=== PATIENT | female | born 1970 | race Caucasian/White ===

== ENCOUNTER 2017-05-23 12:51 | Observation (INO) | payer BC ==
[2017-05-23] MEDS ORDERED: ZOFRAN INJ 4 MG VIAL ONE (13:01)
--- NOTE | 2017-05-23 13:03 | DR.GENAD ---
HPI - PCP Primary Care Physician: gunjan - HPI Comment HPI Comment: PATIENT INJURED RIGHT UPPER BACK 7 DAYS AGO. INCREASING RIGHT MID THORACICPAIN SINCE. NOW ALSO HAVING SEVERE HEADACHE AND RIGHT FACIAL PARESTHESIA. RIGHT SHOULDER IS SORE. ON ROBAXIN AND MOTRIN. EVALUATED 3 TIMES SINCE INJURY. STILL GETTING WORSE. RIGHT ELBOW IS ALSO PAINFULL. - Complaint/Symptoms Chief Complaint Doctors Comments: RIGHT UPPER BACK SURGERY TIMES ONE WEEK. WORSE DAILY. Chief Complaint:: patient stated she started huting in her upper back on her right side last wednesday. she has been to [facility], dr gray and to a chiropractor. Self Treatment fo Chief Complaint: has taken robaxin and hydrocodiene - Nurses notes reviewed Nurses Notes Review: Yes - Source History Provided: Patient, Family Member - Mode of Arrival Mode of Arrival: Wheelchair - Timing Onset of Chief Complaint: 05/16/17 Came on: Suddenly - Duration Duration: Constant Duration: Days - Severity Severity: Moderate PMH - PMH Past Medical History: Yes Past Medical History: Hypothyroidism Past Surgical History: Yes Surgical History: Hysterectomy, Tonsillectomy - Family History History of Family Medical Conditions: No - Social History Does patient currently use any type of tobacco product: No Have you used tobacco products in the last 12 months: No Type of Tobacco Use: None Does any household member use tobacco: No Alcohol Use: Rarely Do you use any recreational Drugs:: No Lives With: Family Lives Where: Home - infectious screening In the last 2 months have you had wt loss of >10#?: NO Have you had fever, night sweats or hemotysis?: No Have you traveled outside the country in the last 6 months?: No Isolation: Standard ROS - Review of Systems Constitutional: No Symptoms Reported Eyes: No Symptoms Reported ENTM: No Symptoms Reported Respiratoy: No Symptoms Reported Cardiovascular: No Symptoms Reported Gastrointestinal/Abdominal: No Symptoms Reported Genitourinary: No Symptoms Reported Musculoskeletal: No Symptoms Reported Hematologic/Lymphatic: No Symptoms Reported Endocrine: No Symptoms Reported All Other Systems: Reviewed and Negative PE - Vital Signs Vitals: Pulse Rate 80 Respiratory Rate 18 Blood Pressure 162/76 O2 Sat by Pulse Oximetry 100 - General Limitations: No Limitations General Appearance: Alert - Head Head Exam: Normal Inspection - Eyes Eye exam: Normal Appearance - ENT ENT Exam: Normal External Ear Exam External Ear Exam: Normal External Inspection TM/Canal Exam: Bilateral Normal Nose Exam: Normal Nose Exam Mouth Exam: Normal Inspection Throat Exam: Normal Inspection - Neck Neck Exam: Trachea Midline - Chest Chest Inspection: Symmetric Chest Wall Rise - Respiratory Respiratory Exam: Normal Lung Sounds Bilat Respiratory Exam: Bilateral Clear to Auscultation - Cardiovascular Cardiovascular Exam: Regular Rate, Normal Rhythm, Normal Heart Sounds - Abdominal Exam Abdominal Exam: Normal Bowel Sounds, Soft - Extremities Extremities Exam: Normal Inspection - Neurologic Neurological Exam: Alert, Oriented X3 - Psychiatric Psychiatric Exam: Anxious - Skin Skin Exam: Normal Color MDM - Additional Information Additional Information Obtained From: Family - Differential Diagnosis Differential Diagnosis: MID BACK PAIN/STRAIN, FRACTURE. HEADACHE, GENERALIZE PAIN/MYALGIA Course - Treatment Treatment: SEE ORDERS. IV PAIN MEDS AND DECADRUM, PAIN IMPROVING. - Consultation Consultation Comments: DISCUSS PATIENT WITH DR. GRAY. HE WILL ADMIT PATIENT. - Education/Counseling Education/Counseling: Patient, Family, Education Educated On: Treatment, Diagnosis, Needs for Follow Up ROR - Labs Reviewed Laboratory Results Reviewed?: Yes Result Diagrams: 05/24/17 04:35 05/24/17 04:35 Laboratory: WBC 14.9 X10^3/uL (3.6-10.0) H 05/23/17 13:09 RBC 4.82 X10^6/uL (3.5-5.4) 05/23/17 13:09 Hgb 15.5 g/dL (12.0-16.0) 05/23/17 13:09 Hct 44.4 % (36.0-47.0) 05/23/17 13:09 MCV 92.1 fL (80.0-100.0) 05/23/17 13:09 MCH 32.1 pg (27.0-34.0) 05/23/17 13:09 MCHC 34.9 g/dL (33.0-35.0) 05/23/17 13:09 RDW 12.0 % (11.6-16.5) 05/23/17 13:09 Plt Count 319 X10^3/uL (150.0-450.0) 05/23/17 13:09 MPV 8.3 fL (7.4-11.0) 05/23/17 13:09 Neut % 66.7 % (42.0-75.0) 05/23/17 13:09 Lymph % 25.9 % (21.0-51.0) 05/23/17 13:09 [place] % 6.4 % (0.0-13.0) 05/23/17 13:09 Eos % 0.3 % (0.9-2.9) L 05/23/17 13:09 Baso % 0.7 % (0.2-1.0) 05/23/17 13:09 Neut # 9.9 x10^3/uL (2.2-4.8) H 05/23/17 13:09 Lymph # 3.9 X10^3/uL (1.3-2.9) H 05/23/17 13:09 [place] # 1.0 x10^3/uL (0.3-0.8) H 05/23/17 13:09 Eos # 0.0 x10^3/uL (0.0-0.2) 05/23/17 13:09 Baso # 0.1 X10^3/uL (0.0-0.1) 05/23/17 13:09 Absolute Nucleated RBC 0.0 /100WBC 05/23/17 13:09 Sodium 137 mmol/L (136-145) 05/23/17 13:09 Corrected Sodium 138 mmol/L (136-145) 05/23/17 13:09 Potassium 3.1 mmol/L (3.5-5.1) L 05/23/17 13:09 Chloride 99 mmol/L (98-107) 05/23/17 13:09 Carbon Dioxide 25.4 mmol/L (21-32) 05/23/17 13:09 BUN 18 mg/dL (7-18) 05/23/17 13:09 Creatinine 0.87 mg/dL (0.55-1.02) 05/23/17 13:09 Est GFR (MDRD) Af Amer > 60 (>60) 05/23/17 13:09 Est GFR (MDRD) Non-Af > 60 (>60) 05/23/17 13:09 Glucose 132 mg/dL (65-99) H 05/23/17 13:09 Calcium 9.4 mg/dL (8.5-10.1) 05/23/17 13:09 Corrected Calcium TNP 05/23/17 13:09 Total Bilirubin 1.20 mg/dL (0.2-1.0) H 05/23/17 13:09 AST 15 Units/L (15-37) 05/23/17 13:09 ALT 27 Units/L (12-78) 05/23/17 13:09 Alkaline Phosphatase 63 Units/L (46-116) 05/23/17 13:09 Total Protein 7.8 g/dL (6.4-8.2) 05/23/17 13:09 Albumin 3.9 g/dL (3.4-5.0) 05/23/17 13:09 Globulin 3.9 g/dL (2.5-4.5) 05/23/17 13:09 Albumin/Globulin Ratio 1.0 Ratio (1.1-2.1) L 05/23/17 13:09 Amylase 63 Units/L (25-115) 05/23/17 13:09 Lipase 92 Units/L (73-393) 05/23/17 13:09 - XRAY XRAY Interpreted by: Radiologist XRAY Findings: REPORT DISCUSS WITH PATIENT. - Diagnosis Discharge Problem: Intractable pain, Elbow pain, right, Hemangioma of vertebral body, Myalgia Shoulder pain, right Qualifiers: Chronicity: acute Qualified Code(s): M25.511 - Pain in right shoulder Headache Qualifiers: Headache type: unspecified Headache chronicity pattern: acute headache Intractability: intractable Qualified Code(s): R51 - Headache - Discharge Plan Disposition: ADMITTED INPATIENT Condition: Stable - Follow ups/Referrals - Instructions
[2017-05-23] MEDS ORDERED: ZOFRAN INJ 4 MG VIAL IVP ONE (13:05)
[2017-05-23] MEDS ORDERED: TORADOL 30 MG VIAL IVP ONE (13:05)
[2017-05-23] MEDS ORDERED: PEPCID 20 MG IV PREMIX* 20 MG/50 ML BAG IV ONE ×2 (13:05→13:23)
[2017-05-23] MEDS ORDERED: NS 1000 ML 1,000 ML IV ONE (13:06)
[2017-05-23] MEDS ORDERED: DECADRON INJ IV ONE (13:17)
[2017-05-23 13:23] LABS: BASOPHILS # (AUTO) 0.1 X10^3/uL (0.0-0.1); BASOPHILS % (AUTO) 0.7 % (0.2-1.0); EOSINOPHILS % (AUTO) 0.3 % (0.9-2.9); HEMATOCRIT 44.4 % (36.0-47.0); HEMOGLOBIN 15.5 g/dL (12.0-16.0); LYMPHOCYTES # (AUTO) 3.9 X10^3/uL (1.3-2.9); LYMPHOCYTES % (AUTO) 25.9 % (21.0-51.0); MEAN CORPUSCULAR HEMOGLOBIN 32.1 pg (27.0-34.0); MEAN CORPUSCULAR HGB CONC 34.9 g/dL (33.0-35.0); MEAN CORPUSCULAR VOLUME 92.1 fL (80.0-100.0); MEAN PLATELET VOLUME 8.3 fL (7.4-11.0); MONOCYTES % (AUTO) 6.4 % (0.0-13.0); NEUTROPHILS # (AUTO) 9.9 x10^3/uL (2.2-4.8); NEUTROPHILS % (AUTO) 66.7 % (42.0-75.0); PLATELET COUNT 319 X10^3/uL (150.0-450.0); RED BLOOD COUNT 4.82 X10^6/uL (3.5-5.4); WHITE BLOOD COUNT 14.9 X10^3/uL (3.6-10.0)
[2017-05-23] MEDS ORDERED: NS 1000 ML 1,000 ML ONE (13:23)
[2017-05-23] MEDS ORDERED: DECADRON INJ ONE (13:24)
[2017-05-23] MEDS ORDERED: TORADOL 30 MG VIAL ONE (13:24)
[2017-05-23 13:27] LABS: BLOOD UREA NITROGEN 18 mg/dL (7-18); CALCIUM 9.4 mg/dL (8.5-10.1); CARBON DIOXIDE 25.4 mmol/L (21-32); CHLORIDE 99 mmol/L (98-107); COR NA(FOR HYPERGLY) 138 mmol/L (136-145); CREATININE 0.87 mg/dL (0.55-1.02); GLUCOSE 132 mg/dL (65-99); SODIUM 137 mmol/L (136-145); eGFR BLACK RACES > 60 (>60); eGFR NON BLACK RACES > 60 (>60)
[2017-05-23 13:33] LABS: ALANINE AMINOTRANSFERASE 27 Units/L (12-78); ALBUMIN 3.9 g/dL (3.4-5.0); ALKALINE PHOSPHATASE 63 Units/L (46-116); AMYLASE 63 Units/L (25-115); ASPARTATE AMINO TRANSFERASE 15 Units/L (15-37); LIPASE 92 Units/L (73-393); TOTAL PROTEIN 7.8 g/dL (6.4-8.2)
--- NOTE | 2017-05-23 14:17 | RAD ---
HISTORY: Pain Study: Right shoulder series Comparison: None Findings: The appearance of the clavicle and AC joint are unremarkable. The glenohumeral articulation is norm al in its appearance. No acute cortical disruption or dislocation can be identified. The visualize d portions of the scapula are unremarkable. In addition, the visualized portions of the chest appea r unremarkable. IMPRESSION: 1. Negative exam. Reported By:
--- NOTE | 2017-05-23 14:21 | RAD ---
HISTORY: Pain Study: Right elbow series Comparison: None Findings: No fracture or dislocation is seen. There is no joint effusion. There is a small bony protuberance e xtending along the anterior medial aspect of the distal humerus, along the diametaphyseal region whi ch measures 5 mm and is well corticated. IMPRESSION: Incidental small 5 mm osteochondroma seen along the distal humerus with no acute bony abnormality se en. Reported By:
--- NOTE | 2017-05-23 14:26 | CT ---
HISTORY: Paresthesia in the right side of the face. Right-sided facial numbness Study: CT brain without contrast Comparison: No priors Technique: Multiple axial images of the brain were obtained from the skull base to the vertex without administr ation of IV contrast. Coronal and sagittal images are also reviewed. Dose reduction techniques utili zed automatic exposure control. Findings: No acute intraparenchymal hemorrhage or mass can be identified. No extra-axial fluid collections ar e seen. No alteration in the attenuation of the brain parenchyma can be identified to suggest acute or subacute ischemic change. The ventricular system is symmetric and nondilated. The extracranial structures are grossly unremarkable. there is a 1.3 centimeter calcified nodule present in the subc utaneous scalp in the left posterior parietal region. This appears to be extracranial . IMPRESSION: 1. No acute intracranial process can be identified. 2. Calcified subcutaneous nodule in the scalp region of left posterior parietal area. Reported By:
[2017-05-23] MEDS ORDERED: MORPHINE SULFATE INJ 4 MG IVP ONE (14:43)
--- NOTE | 2017-05-23 14:44 | CT ---
HISTORY: Pain in upper back after lifting heavy object Study: CT thoracic spine without contrast Comparison: No priors Technique: Multiple axial images of the thoracic spine were obtained from the thoracic inlet to the thoracolumbar junction. Sagittal and coronal reconstructions were performed and reviewed. Dose redu ction techniques utilized automatic exposure control. Findings: Alignment of the thoracic spine is maintained. No evidence for acute cortical disruption or subluxa tion identified. The posterior elements and central canal appear unremarkable. No significant para spinal soft tissue injury can be identified. There are indications of vertebral body hemangioma at t he T7 level. Mild spondylosis is present at multiple thoracic levels. IMPRESSION: No fracture, subluxation or disk space narrowing. There are indications of vertebral body hemangioma at the T7 level. Reported By:
[2017-05-23] MEDS ORDERED: MORPHINE SULFATE INJ 4 MG ONE (14:45)
[2017-05-23] MEDS: PHENERGAN INJ 25 MG IV PRN ×3 (14:54→23:07)
[2017-05-23] MEDS ORDERED: PHENERGAN INJ 25 MG IV PRN (15:58)
[2017-05-23 17:40] VITALS: BMI 31.2
[2017-05-23] MEDS ORDERED: K-RIDER 10 MEQ/NS 100 ML 10 MEQ/100 ML BAG IV PRN (17:44)
[2017-05-23] MEDS ORDERED: K-LYTE EFFERVESCENT PO PRN (17:44)
[2017-05-23] MEDS ORDERED: K-DUR TAB 20 MEQ PO PRN (17:44)
[2017-05-23] MEDS ORDERED: POTASSIUM CHLORIDE LIQ 20 MEQ UDC PO PRN (17:44)
[2017-05-23] MEDS: MORPHINE SULFATE INJ 4 MG IVP PRN ×2 (18:22→23:08)
[2017-05-23 19:41] LABS: BILIRUBIN,URINE NEGATIVE (NEGATIVE); BLOOD/HEMOGLOBIN,URINE NEGATIVE (NEGATIVE); GLUCOSE, URINE NEGATIVE (NEGATIVE); KETONES,URINE NEGATIVE (NEGATIVE); LEUKOCYTE ESTERASE ,URINE NEGATIVE (NEGATIVE); NITRITES,URINE NEGATIVE (NEGATIVE); PROTEIN,URINE NEGATIVE (NEGATIVE); UROBILINOGEN,URINE NORMAL (NORMAL)
[2017-05-23 19:51] LABS: APPEARANCE,URINE CLEAR (CLEAR); BACTERIA,URINE TRACE /HPF (NEGATIVE); COLOR,URINE YELLOW (YELLOW); RBC,URINE NONE SEEN /HPF (NEGATIVE); SQUAMOUS EPITHELIAL CELL,UR RARE /HPF (NEGATIVE)
[2017-05-23] MEDS: SOLU-Medrol 125 MG VIAL IVP SCH (21:36)
[2017-05-23] MEDS: NS + KCL 20 MEQ/L 1,000 ML IV SCH (21:37)
[2017-05-23] MEDS: PEPCID 20 MG IV PREMIX* 20 MG/50 ML BAG IV SCH (21:37)
[2017-05-23] MEDS ORDERED: SOLU-Medrol 125 MG VIAL IVP SCH (22:00)
[2017-05-24] MEDS: NS + KCL 20 MEQ/L 1,000 ML IV SCH ×4 (00:35→16:16)
[2017-05-24] MEDS: PHENERGAN INJ 25 MG IV PRN ×2 (04:50→09:09)
[2017-05-24] MEDS: MORPHINE SULFATE INJ 4 MG IVP PRN ×2 (04:50→09:10)
[2017-05-24] MEDS: SOLU-Medrol 125 MG VIAL IVP SCH ×2 (04:59→13:40)
[2017-05-24 05:22] LABS: BASOPHILS % (AUTO) 0.2 % (0.2-1.0); HEMATOCRIT 41.4 % (36.0-47.0); HEMOGLOBIN 14.1 g/dL (12.0-16.0); LYMPHOCYTES # (AUTO) 0.8 X10^3/uL (1.3-2.9); LYMPHOCYTES % (AUTO) 7.4 % (21.0-51.0); MEAN CORPUSCULAR HEMOGLOBIN 32.3 pg (27.0-34.0); MEAN CORPUSCULAR HGB CONC 34.1 g/dL (33.0-35.0); MEAN CORPUSCULAR VOLUME 94.7 fL (80.0-100.0); MEAN PLATELET VOLUME 8.3 fL (7.4-11.0); MONOCYTES # (AUTO) 0.1 x10^3/uL (0.3-0.8); MONOCYTES % (AUTO) 0.8 % (0.0-13.0); NEUTROPHILS # (AUTO) 9.5 x10^3/uL (2.2-4.8); NEUTROPHILS % (AUTO) 91.6 % (42.0-75.0); PLATELET COUNT 252 X10^3/uL (150.0-450.0); RED BLOOD COUNT 4.37 X10^6/uL (3.5-5.4); RED CELL DISTRIBUTION WIDTH 12.1 % (11.6-16.5); WHITE BLOOD COUNT 10.3 X10^3/uL (3.6-10.0)
[2017-05-24 05:31] LABS: ALANINE AMINOTRANSFERASE 21 Units/L (12-78); ALBUMIN 3.1 g/dL (3.4-5.0); ALKALINE PHOSPHATASE 51 Units/L (46-116); ASPARTATE AMINO TRANSFERASE 10 Units/L (15-37); BLOOD UREA NITROGEN 14 mg/dL (7-18); CALCIUM 8.5 mg/dL (8.5-10.1); CARBON DIOXIDE 26.1 mmol/L (21-32); CHLORIDE 107 mmol/L (98-107); COR CA(FOR HYPOALB) 9.2 mg/dL (8.5-10.1); COR NA(FOR HYPERGLY) 142 mmol/L (136-145); CREATININE 0.79 mg/dL (0.55-1.02); GLUCOSE 131 mg/dL (65-99); SODIUM 141 mmol/L (136-145); TOTAL PROTEIN 6.5 g/dL (6.4-8.2); eGFR BLACK RACES > 60 (>60); eGFR NON BLACK RACES > 60 (>60)
[2017-05-24 05:58] LABS: PLATELET MORPHOLOGY COMMENT NORMAL (NORMAL)
[2017-05-24] MEDS: PEPCID 20 MG IV PREMIX* 20 MG/50 ML BAG IV SCH (09:04)
[2017-05-24] MEDS ORDERED: NORCO 5/325 MG TAB PO PRN (10:51)
[2017-05-24] MEDS ORDERED: SYNTHROID 50 mcg TAB PO SCH (11:00)
[2017-05-24] MEDS ORDERED: ESTRADIOL 0.5 MG PO SCH (11:00)
[2017-05-24] MEDS ORDERED: TORADOL 30 MG VIAL IVP SCH (12:00)
--- NOTE | 2017-05-24 13:40 | MRI ---
HISTORY: Neck pain. Study: MRI cervical spine with and without contrast. Comparison: None available. Technique: Multiplanar multisequence MRI of the cervical spine was obtained utilizing standard depar tmental protocol. Findings: The visualized posterior fossa appears normal. No cerebellar tonsillar ectopia. Anatomic alignment w ithout acute fracture or listhesis. Multilevel disc desiccation with moderate to severe disc height loss at C5-C6. Associated type 2 Modic endplate changes. There is a T1 dark/T2 bright 5 mm focus wit hin the C3 vertebral body. This is bright on STIR images. This likely represents an atypical benign hemangioma. Remaining bone marrow signal appears normal. The visualized spinal cord demonstrates nor mal course, caliber, and signal characteristics. The visualized soft tissues are unremarkable. No ar eas of abnormal contrast enhancement. C2 -- C3: No significant disc bulge, neural foraminal narrowing, or spinal canal stenosis. C3 -- C4: No significant disc bulge, neural foraminal narrowing, or spinal canal stenosis. C4 -- C5: Broad-based disc bulge with associated uncovertebral hypertrophy causing severe left neura l foraminal narrowing and spinal canal stenosis to 10 mm. No significant right neural foraminal narr owing. C5 -- C6: Broad-based disc bulge with associated uncovertebral hypertrophy causing moderate to sever e left and moderate right neural foraminal narrowing. Spinal canal stenosis to 10 mm. C6 -- C7: Broad-based disc bulge and associated uncovertebral hypertrophy causing spinal canal steno sis to 7 mm. No significant neural foraminal narrowing. C7 -- T1: No significant disc bulge, neural foraminal narrowing, or spinal canal stenosis. IMPRESSION: Multilevel degenerative changes of the cervical spine, which are worse at C4 through C7 with broad-based disc bulges causing moderate to severe neural foraminal narrowing and spinal canal stenosis to 7 mm. Reported By:
--- NOTE | 2017-05-24 13:42 | US ---
History: Right upper quadrant abdominal pain Study: Ultrasound of the right upper quadrant of the abdomen Findings: The gallbladder is contracted without stone or sludge. The common hepatic duct measures 3. 9 millimeters diameter. The visualized liver and right kidney and pancreas are unremarkable without demonstration of a mass. There is no free fluid. There is no right hydronephrosis. Impression: Negative Reported By:
--- NOTE | 2017-05-24 13:50 | DR.H&P ---
H&P - History & Physical for Day of: H&P Date: 05/23/17 - Chief Complaint Chief Complaint: RIGHT SIDE BACK, NECK, AND SHOULDER PAIN. HEADACHE - Allergies Allergies/Adverse Reactions: Allergies Allergy/AdvReac Type Severity Reaction Status Date / Time No Known Drug Allergies Allergy Verified 05/23/17 17:19 - History of Present Illness History of Present Illness: IS A 47 YEAR OLD PATIENT OF OURS WHO PRESENTED TO THE EMERGENCY ROOM WITH COMPLAINTS OF RIGHT UPPER BACK PAIN, SEVERE HEADACHE, AND RIGHT SHOULDER AND ELBOW PAIN. PATIENT STATED THAT SHE INJURED HER BACK 7 DAYS AGO. PATIENT WAS SEEN IN OUR OFFICE LAST WEEK. WE PLACED HER ON ROBAXIN, MOTRIN, AND HYDROCODONE. SHE HAS SINCE BEEN TO A CHIROPRACTOR. PATIENT STATED THAT NO TREATMENTS HAVE HELPED HER PAIN SO FAR. ON ARRIVAL TO ER, VITALS WERE 80, 18, 100%, 162/76. LABS AND XRAYS/CTS WERE OBTAINED. CBC WNL EXCEPT WBC 14.9. CMP WNL EXCEPT POTASSIUM 3.1, GLUCOSE 132, AND TOTAL BILIRUBIN 1.20. URINALYSIS WNL. ELBOW XRAY REPORTED INCIDENTAL SMALL 5MM OSTEOCHONDROMA ALONG DISTAL HUMERUS WITH NO ACUTE ABNORMALITY SEEN. T-SPINE CT REPORTED INDICATIONS OF VERTEBRAL BODY HEMANGIOMA AT T-7. BRAIN CT REPORTED CALCIFIED SUBCUTANEOUS NODULE IN THE SCALP REGION OF THE LEFT POSTERIOR PARIETAL AREA. SHOULDER XRAY WAS NEGATIVE. IVF, MORPHINE, AND DECADRON WERE GIVEN WITH IMPROVEMENT OF PAIN NOTED. WE ADMITTED PATIENT FOR FURTHER TREATMENT AND EVALUATION. WE STARTED PATIENT ON NS WITH 20MEQ KCL AT 125ML/HR TO CORRECT POTASSIUM. WE WILL START CONTINUE WITH IV PAIN MEDICATION AND REVIEW HOME MEDICATIONS. WE WILL RECHECK LABS AND FOLLOW UP WITH PATIENT IN AM. - Past Medical History Past Medical History: Hypothyroidism - Past Surgical History Surgical History: Hysterectomy, Tonsillectomy - Family History Family Medical History: Diabetes Mellitus, Cancer, Hypertension - Social History Does patient currently use any type of tobacco product: No Have you used tobacco products in the last 12 months: No Type of Tobacco Use: None Does any household member use tobacco: No Alcohol Use: Rarely Drug Use: None - Medications Home Medications: Dextroamphetamine/Amphetamine [Dextroamp-Amphetamin 10 mg Tab] 10 mg PO DAILY [History Confirmed 05/23/17] Estradiol [Estradiol] 0.5 mg PO DAILY 05/23/17 [History Confirmed 05/23/17] Hydrocodone/Acetaminophen [Hydrocodon-Acetaminophen 5-325] 1 tab PO Q6HR [History Confirmed 05/23/17] Levothyroxine Sodium [SYNTHROID 50 mcg *] 50 mcg PO DAILY 05/23/17 [History Confirmed 05/23/17] - Review of Systems Constitutional: No Symptoms Reported. denies: See HPI, Fever, Chills, Sweats, Weakness, Malaise, Other Eyes: No Symptoms Reported. denies: See HPI, Pain, Vision Change, Conjunctivae Inflammation, Eyelid Inflammation, Redness, Other ENT: No Symptoms Reported. denies: See HPI, Ear Pain, Ear Discharge, Nose Pain , Nose Discharge, Nose Congestion, Mouth Pain, Mouth Swelling, Throat Pain, Throat Swelling, Other Respiratory: No Symptoms Reported. denies: See HPI, Cough, Dry, Shortness of Breath, Hemoptysis, SOB with Excertion, Pleuritic Pain, Sputum, Wheezing, Other Cardiovascular: No Symptoms Reported. denies: Chest Pain, See HPI, Palpitations , Orthopnea, Paroxysmal Noc. Dyspnea, Edema, Light Headedness, Other Gastrointestinal: Abdominal Pain. denies: No Symptoms Reported, See HPI, Nausea , Vomiting, Diarrhea, Constipation, Melena, Hematochezia, Other Genitourinary: No Symptoms Reported. denies: See HPI, Dysuria, Frequency, Incontinence, Hematuria, Retention, Other Musculoskeletal: Shoulder Pain, Back Pain, Neck Pain Skin: No Symptoms Reported. denies: See HPI, Rash, Lesions, Jaundice, Bruising , Wound, Ecchymosis, Other Neurological: See HPI (HEADACHE ), Other (HEADACHE ) - Physical Exam Vital Signs: Temperature 98.4 F Pulse Rate [Right Brachial] 85 Respiratory Rate 20 Blood Pressure [Right Arm] 139/64 O2 Sat by Pulse Oximetry 96 Oriented: Normal. negative: Time, Person, Place, Not Oriented, Unable to test, Other Eyes: Normal. negative: Blurred Vision, Diplopia, Discharge, Pain, Redness, Photophobia, Other Ear: Normal. negative: Right, Left, Swelling, Ecchymosis, Hemotypanum, Abrasion , Laceration Nose: Normal. negative: Injected, Discharge, Blood, Other Throat: Normal. negative: Tonsillar Hypertrophy, Red, Exudate, Dry, Other Respiratory: Clear Throughout. negative: Diminished Throughout, Rhonchi Throughout, Rales Throughout, Wheezes Throughout, RUL Clear, RML Clear, RLL Clear, ARANZA Clear, LML Clear, LLL Clear, RUL Diminished, RML Diminished, RLL Diminished, ARANZA Diminished, LML Diminished, LLL Diminished, RUL Absent, RML Absent, RLL Absent, ARANZA Absent, LML Absent, LLL Absent, RUL Rhonchi, RML Rhonchi , RLL Rhonchi, ARANZA Rhonchi, LML Rhonchi, LLL Rhonchi, RUL Insp. Wheeze, RML Insp. Wheeze, RLL Insp. Wheeze, ARANZA Insp.Wheeze, LML Insp.Wheeze, LLL Insp.Wheeze, RUL Exp. Wheeze, RML Exp. Wheeze, RLL Exp. Wheeze, ARANZA Exp. Wheeze , LML Exp. Wheeze, LLL Exp. Wheeze, RUL Rales, RML Rales, RLL Rales, ARANZA Rales, LML Rales, LLL Rales, RUL Rub, RML Rub, RLL Rub, ARANZA Rub, LML Rub, LLL Rub, RUL Squeak, RML Squeak, RLL Squeak, ARANZA Squeak, LML Squeak, LLL Squeak Cardiovascular: Normal. negative: Tachycardia, Bradycardia, Irregular, S3, S4, Systolic, Diastolic, Murmur, Edema, Other : Normal. negative: Dysuria, Hematuria, Frequency, Discharge, Testicular Pain , Bleeding, , Other Auscultation: Bowel Sounds: Normal. negative: Bruit, Absent, Increased, Decreased, High Pitched, Other Palpation: Normal. negative: Spleen Enlarged, Liver Enlarged, Mass Pulsatile, Other Tenderness: Normal, RUQ Skin: Normal Musculoskeletal: Right, Shoulder, Elbow, Back:Thoracic, Tender Psychiatric: Normal Mood Description: Calm Affect: Normal Speech Pattern: Clear - Assessment/Plan (1) Intractable pain Status: Acute Plan: MORPHINE IV PRN, MRI, CONTINUE TO MONITOR (2) Elbow pain, right Status: Acute Plan: MORPHINE IV PRN, CONTINUE TO MONITOR (3) Headache Qualifiers: Headache type: unspecified Headache chronicity pattern: acute headache Intractability: intractable Qualified Code(s): R51 - Headache Status: Acute Plan: MORPHINE, CONTINUE TO MONITOR (4) Shoulder pain, right Qualifiers: Chronicity: acute Qualified Code(s): M25.511 - Pain in right shoulder Status: Acute Plan: MORPHINE, CONTINUE TO MONITOR (5) Abdominal pain Qualifiers: Abdominal location: right upper quadrant Qualified Code(s): R10.11 - Right upper quadrant pain Status: Acute Plan: GALL BLADDER US, HIDA SCAN, CONTINUE TO MONITOR
[2017-05-24 16:15] VITALS: BP 141/65
[2017-05-25] MEDS ORDERED: ESTRACE PO SCH (09:00)
--- NOTE | 2017-05-28 22:11 | DR.CARTERD ---
- Discharge Summary for: Discharge Summary for Date of:: 05/24/17 - Admission Date Date of Admission: 05/23/17 - Admission Diagnoses Admission Diagnosis: (1) Intractable pain (2) Elbow pain, right (3) Headache (4) Shoulder pain, right (5) Abdominal pain - Discharge Date Discharge Date: 05/24/17 - Discharge Diagnoses Discharge Diagnosis: (1) Intractable pain (2) Elbow pain, right (3) Headache (4) Shoulder pain, right (5) Abdominal pain - Hospital Course Hospital Course: , A 47 YEAR OLD PATIENT OF OURS, PRESENTED TO THE EMERGENCY ROOM WITH COMPLAINTS OF RIGHT UPPER BACK PAIN, SEVERE HEADACHE, AND RIGHT SHOULDER AND ELBOW PAIN. PATIENT STATED THAT SHE INJURED HER BACK 7 DAYS AGO. PATIENT WAS SEEN IN OUR OFFICE LAST WEEK. WE PLACED HER ON ROBAXIN, MOTRIN, AND HYDROCODONE. SHE HAD SINCE BEEN TO A CHIROPRACTOR. PATIENT STATED THAT NO TREATMENTS HAD HELPED HER PAIN. ON ARRIVAL TO ER, VITALS WERE 80, 18, 100%, 162/ 76. LABS AND XRAYS/CTS WERE OBTAINED. CBC WNL EXCEPT WBC 14.9. CMP WNL EXCEPT POTASSIUM 3.1, GLUCOSE 132, AND TOTAL BILIRUBIN 1.20. URINALYSIS WNL. ELBOW XRAY REPORTED INCIDENTAL SMALL 5MM OSTEOCHONDROMA ALONG DISTAL HUMERUS WITH NO ACUTE ABNORMALITY SEEN. T-SPINE CT REPORTED INDICATIONS OF VERTEBRAL BODY HEMANGIOMA AT T-7. BRAIN CT REPORTED CALCIFIED SUBCUTANEOUS NODULE IN THE SCALP REGION OF THE LEFT POSTERIOR PARIETAL AREA. SHOULDER XRAY WAS NEGATIVE. IVF, MORPHINE, AND DECADRON WERE GIVEN WITH IMPROVEMENT OF PAIN NOTED. WE ADMITTED PATIENT FOR FURTHER TREATMENT AND EVALUATION. WE STARTED PATIENT ON NS WITH 20MEQ KCL AT 125ML/HR TO CORRECT POTASSIUM. WE STARTED IV PAIN MEDICATION AND REVIEWED HOME MEDICATIONS. THE NEXT DAY, PATIENT REPORTED LESS SHOULDER AND UPPER BACK PAIN. PATIENT DENIED HEADACHE. PATIENT HAD FAIR RANG OF MOTION WITH RIGHT SHOULDER. WE PLANNED FOR DISCHARGE. INSTRUCTIONS FOR MEDICATIONS AND FOLLOW UP WERE GIVEN TO PATIENT AND FAMILY, BOTH VOICED UNDERSTANDING. PATIENT WAS DISCHARGED HOME IN STABLE CONDITION WITH FAMILY. - Discharge Medications Discharge Medications: RX: Dextroamphetamine/Amphetamine [Dextroamp-Amphetamin 10 mg Tab] 10 mg PO DAILY 05/23/17 [History] RX: Estradiol 0.5 mg PO DAILY 05/23/17 [History] RX: Hydrocodone/Acetaminophen [Hydrocodon-Acetaminophen 5-325] 1 tab PO Q6HR 08/01 [History] RX: Levothyroxine Sodium [SYNTHROID 50 mcg *] 50 mcg PO DAILY 05/23/17 [History] Promethazine HCl [PHENERGAN TAB 25 MG *] 25 mg PO Q6H PRN #20 tab 05/24/17 [Rx] - Discharge Disposition Discharge Disposition: PATIENT IS TO FOLLOW UP IN OUR OFFICE ON 05/31/17.
== END 2017-05-24 17:00 | disposition home or self-care (01) ==
LOC: ER 13:03 → MED/SURG 15:53
PROVIDERS: ADMIT Internal Medicine; ATTEND Internal Medicine
DX: M54.5 Low back pain (principal); R51 Headache; R20.8 Other disturbances of skin sensation; D18.09 Hemangioma of other sites; M25.511 Pain in right shoulder; M79.1 Myalgia; M54.2 Cervicalgia; R10.11 Right upper quadrant pain; M25.521 Pain in right elbow; R73.09 Other abnormal glucose; D72.828 Other elevated white blood cell count
CPT/HCPCS: 36415; 70450; 72128; 72156; 73030; 73070; 76705; 80053; 81001; 82150; 83690; 85025; 96365; 96374; 96375; 99284; A4222; S0028; G0378; J1100; J1885; J2270; J2405; J2550; J2930

== ENCOUNTER → 2017-06-10 | Outpatient (CLI) | payer BC ==
[2017-05-24 16:15] VITALS: BP 141/65
--- NOTE | 2017-06-10 11:22 | NM ---
HISTORY: Abdominal pain Study: Nuclear medicine HIDA scan with ejection fraction Comparison: None Technique: Multiple scintigraphic images of the abdomen were obtained the intravenous administration of 5.2 mCi of technetium labeled Choletec. Following distention of the gallbladder with radiotracer the patient received a fatty meal. An estim ated gallbladder ejection fraction was calculated based on the physiologic response of this infusion . Findings: Homogeneous uptake of radiotracer is seen throughout the liver. This intrabiliary ductal system is observed normally. The common hepatic and common bile duct grossly appear unremarkable with normal biliary-bowel transit. The gallbladder is observed to fill normally. After the fatty meal a gallbladder ejection fraction of 3.4% (normal > 35%) is observed. IMPRESSION: 1. Normal hepatobiliary imaging scan. 2 abnormal gallbladder ejection fraction 3.4% Reported By:
== END | disposition home or self-care (01) | DRG 392 ==
LOC: RAD 08:41
PROVIDERS: ATTEND Internal Medicine
DX: R10.84 Generalized abdominal pain (principal); R93.2 Abnormal findings on diagnostic imaging of liver and biliary tract
CPT/HCPCS: 78227

== ENCOUNTER 2017-06-18 07:35 | Day surgery (SDC) | payer BC ==
[2017-06-18] MEDS ORDERED: NS 50 ML IV + SPIKE MINIBAG* 100 ML IV ONE (07:41)
[2017-06-18] MEDS ORDERED: NS 1000 ML 1,000 ML ONE (07:41)
[2017-06-18] MEDS ORDERED: ANCEF VIAL 1 GM ONE (07:42)
[2017-06-18] MEDS ORDERED: FENTANYL INJ 250 mcg ONE (07:50)
[2017-06-18 08:01] LABS: BASOPHILS % (AUTO) 0.5 % (0.2-1.0); EOSINOPHILS # (AUTO) 0.1 x10^3/uL (0.0-0.2); EOSINOPHILS % (AUTO) 1.4 % (0.9-2.9); HEMATOCRIT 40.5 % (36.0-47.0); HEMOGLOBIN 14.1 g/dL (12.0-16.0); LYMPHOCYTES # (AUTO) 2.8 X10^3/uL (1.3-2.9); LYMPHOCYTES % (AUTO) 46.7 % (21.0-51.0); MEAN CORPUSCULAR HEMOGLOBIN 32.3 pg (27.0-34.0); MEAN CORPUSCULAR HGB CONC 34.7 g/dL (33.0-35.0); MEAN CORPUSCULAR VOLUME 93.1 fL (80.0-100.0); MEAN PLATELET VOLUME 7.9 fL (7.4-11.0); MONOCYTES # (AUTO) 0.5 x10^3/uL (0.3-0.8); MONOCYTES % (AUTO) 7.8 % (0.0-13.0); NEUTROPHILS # (AUTO) 2.7 x10^3/uL (2.2-4.8); NEUTROPHILS % (AUTO) 43.6 % (42.0-75.0); PLATELET COUNT 292 X10^3/uL (150.0-450.0); RED BLOOD COUNT 4.35 X10^6/uL (3.5-5.4); RED CELL DISTRIBUTION WIDTH 12.1 % (11.6-16.5); WHITE BLOOD COUNT 6.1 X10^3/uL (3.6-10.0)
[2017-06-18 08:11] LABS: ALANINE AMINOTRANSFERASE 29 Units/L (12-78); ALBUMIN 3.7 g/dL (3.4-5.0); ALKALINE PHOSPHATASE 55 Units/L (46-116); ASPARTATE AMINO TRANSFERASE 20 Units/L (15-37); BLOOD UREA NITROGEN 14 mg/dL (7-18); CALCIUM 8.9 mg/dL (8.5-10.1); CARBON DIOXIDE 33.5 mmol/L (21-32); CHLORIDE 104 mmol/L (98-107); CREATININE 0.84 mg/dL (0.55-1.02); GLUCOSE 102 mg/dL (65-99); SODIUM 141 mmol/L (136-145); TOTAL PROTEIN 7.4 g/dL (6.4-8.2); eGFR BLACK RACES > 60 (>60); eGFR NON BLACK RACES > 60 (>60)
[2017-06-18] MEDS ORDERED: MARCAINE 0.25% WITH EPI IJ ONE (08:19)
[2017-06-18] MEDS ORDERED: XYLOCAINE 1 % (PLAIN) ONE (08:19)
[2017-06-18] MEDS ORDERED: NS IRRIGATION 3000 ML 3,000 ML IR ONE (08:40)
[2017-06-18] MEDS ORDERED: PHENERGAN INJ 25 MG IVP PRN (09:47)
[2017-06-18] MEDS ORDERED: ZOFRAN INJ 4 MG VIAL IVP PRN ×2 (09:47→09:51)
[2017-06-18] MEDS ORDERED: DILAUDID INJ ONE (09:47)
[2017-06-18] MEDS ORDERED: REGLAN INJ 10 MG VIAL IVP PRN (09:47)
[2017-06-18] MEDS ORDERED: BENADRYL INJ 50 MG VIAL IVP PRN (09:47)
[2017-06-18] MEDS: DILAUDID INJ IVP PRN ×3 (09:50→10:10)
[2017-06-18] MEDS ORDERED: PERCOCET TAB 5/325 MG PO PRN (09:51)
[2017-06-18 11:21] VITALS: BP 151/72
[2017-06-18] MEDS ORDERED: NORCURON INJ 10 MG VIAL ONE (14:01)
[2017-06-18] MEDS ORDERED: DYLOJECT INJ ONE (14:01)
[2017-06-18] MEDS ORDERED: ROBINUL ONE (14:01)
[2017-06-18] MEDS ORDERED: XYLOCAINE 2 % (PLAIN) ONE (14:01)
[2017-06-18] MEDS ORDERED: DIPRIVAN VIAL ONE (14:01)
[2017-06-18] MEDS ORDERED: ZOFRAN INJ 4 MG VIAL ONE (14:01)
[2017-06-18] MEDS ORDERED: NEOSTIGMINE INJ ONE (14:01)
[2017-06-18] MEDS ORDERED: QUELICIN (OR ANECTINE) ONE (14:01)
[2017-06-18] MEDS ORDERED: VERSED ONE (14:01)
[2017-06-18] MEDS ORDERED: SUPRANE IN ONE (15:32)
== END 2017-06-18 11:17 | disposition home or self-care (01) ==
LOC: SURG1 07:35
PROVIDERS: ATTEND Student in an Organized Health Care Education/Training Program
PROC: 0FT44ZZ Resection of Gallbladder, Percutaneous Endoscopic Approach (ICD-10-PCS; principal; 2017-06-18 08:30)
DX: K81.1 Chronic cholecystitis (principal); K82.8 Other specified diseases of gallbladder
CPT/HCPCS: 36415; 80053; 85025; A4216; A4222; S0020; A4217; J0330; J0690; J1170; J2001; J2250; J2405; J2550; J2710; J3010; J3490

== ENCOUNTER → 2017-08-19 | Outpatient (CLI) | payer BC ==
--- NOTE | 2017-08-24 17:20 | CT ---
HISTORY: Radiculopathy and back pain Study: CT lumbar spine without contrast Comparison: None Technique: Multiple axial images of the lumbar spine were obtained from the thoracolumbar junction t o the sacrum without the administration of IV contrast. Sagittal and coronal reformats were performe d and reviewed. Findings: Alignment of the lumbar spine is maintained. No evidence for acute fracture or subluxation can be id entified. No central canal compromise by bony osteophyte formation or soft tissue components can be identified. No significant facet joint arthropathy can be appreciated. The surrounding paraspinous soft tissues are normal in their noncontrasted appearance. IMPRESSION: 1. Negative exam of the lumbar spine. Reported By:
--- NOTE | 2017-08-25 09:34 | RAD ---
HISTORY: Lumbar radiculopathy Study: Lumbar spine with lateral views obtained in flexion and extension Comparison: CT scan of the lumbar spine also done on 08/19/2017. Technique: AP, lateral, spot lateral and lateral views obtained in flexion and extension are provided . Findings: There are surgical clips from cholecystectomy. Pedicles, transverse processes and posterior elements are all intact. There is very mild spondylosis at multiple levels. Disc spaces are well maintained. N o fracture or subluxation is seen. Views obtained in flexion and extension reveal no indication of in stability. IMPRESSION: No evidence of fracture, subluxation, disc space narrowing or instability. Reported By:
== END ==
LOC: RAD 14:08
PROVIDERS: ATTEND Neurological Surgery
DX: M54.16 Radiculopathy, lumbar region (principal)
CPT/HCPCS: 72110; 72131